=== PATIENT | male | born 1950 | race Caucasian/White ===

== ENCOUNTER 2017-02-03 11:42 | Emergency (ER) | payer OTHER ==
[~2017-02-03] VITALS: Ht 177.8 cm; Wt 113.6 kg
[2017-02-03 11:58] VITALS: BP 151/114; PULSE 93; RESP 18; O2SAT 98
--- NOTE | 2017-02-03 12:45 | DRSVH ---
PROCEDURE: X-RAY CHEST ONE VIEW, PORTABLE ([id number]) INDICATIONS: 66-year-old male with recurrent atrial fibrillation. TECHNIQUE: One view of the chest was acquired. COMPARISON: None. FINDINGS: Surgical changes and devices: None. Lungs and pleura: No pleural effusions or pneumothorax. Lungs are clear. Mediastinum: Mediastinal contours appear normal. Heart size is normal. Bones and chest wall: No suspicious bony lesions. Overlying soft tissues appear unremarkable. IMPRESSION: No acute cardiopulmonary disease. Dictated by: Lauro Ponce M.D. on 02/03/2017 at 12:44 Approved by: Lauro Ponce M.D. on 02/03/2017 at 12:44
[2017-02-03 13:42] LABS: BASOPHILS % (AUTO) 0.4 % (0-3); EOSINOPHILS % (AUTO) 3.9 % (0-5); MONOCYTES % (AUTO) 8.1 % (4-12); Mean Corpuscular Hemoglobin 29.7 pg (27.0-35.0); Mean Corpuscular Volume 86.3 fL (81-100); NEUTROPHILS % (AUTO) 50.7 % (40-74); Platelet Count 168 bil/L (150-400)
[2017-02-03 14:06] LABS: TROPONIN T < 0.010 ug/L (0.0-0.011)
[2017-02-03 14:54] VITALS: BP 134/80; PULSE 83; RESP 16; O2SAT 96
[2017-02-03] MEDS ORDERED: Propofol 10 mg/mL 20 mL Inj IVPUSH ONE (15:10)
--- NOTE | 2017-02-03 15:12 | ED.REPORT ---
HPI-General Illness Date of Service Feb 03, 2017 ED Provider: Tati Mancilla MD Pt is a 66 year old male with a history of A-fib who presents to the ED complaining of intermittent onset of A-fib for the past 2 months. He c/o associated palpitations. He denies SOB, chest pain, swelling, and water weight gain. The pt reports that his first episode of A-fib was 3 years ago and it converted by itself while he was in the hospital. The pt is moving from [place], and his child caregiver private home advised him to find a child caregiver private home in [place] to help with his current A-fib episodes. Nursing Notes Stated Complaint: AFIB Chief Complaint: Dysrhythmia/Cardiac Nursing Notes Reviewed: Yes Allergies: Coded Allergies: No Known Allergies (Unverified , 02/03/17) Scheduled Amiodarone (Amiodarone) 100 Mg Tablet 100 MG PO DAILY General Time Seen by MD: 12:23 Chief Complaint Other (A-fib) Hx Obtained From: Patient, Spouse Arrived By: Walk-in Sudden in Onset?: No Onset Occurred: More than a week ago... (2 months) Symptom Duration: Intermittent Severity: Current: No pain currently Severity: Maximum: No pain Recent Healthcare: No recent doctor visit, No recent hospitalization Similar Sx Previous: Yes Past Medical History Past Medical History Afib (first episode 3 years ago) Past Surgical History Denies Smoking History Unknown if Ever Smoker Social History Other Social History: Good social support Ambulatory Status Independent Review of Systems Full Review of Systems Respiratory: Denies: Shortness of breath Cardiovascular: Reports: Palpitations (A-fib), Denies: Chest pain Musculoskeletal: Denies: Extremity swelling Endocrine: Denies: Weight gain Complete sys rev & neg: except as marked. Physical Exam Vital Signs Vital Signs Date Time Temp Pulse Resp B/P Pulse Ox O2 Delivery O2 Flow Rate FiO2 02/03/17 14:54 83 16 134/80 96 Room Air 02/03/17 11:58 93 18 151/114 98 Room Air Initial VS: Reviewed Head / Eyes: Atraumatic, Normocephalic Respiratory: Breath sounds normal, Clear to auscultation, No respiratory distress Abdomen / GI: Soft, Non-tender Extremities: Vascular intact, Neuro intact Skin: Warm, Dry, No cyanosis Neurologic: Alert, Oriented, Nonfocal Psychiatric: Mood/affect normal, Behavior normal General/Constitutional: Awake, Alert Cardiovascular: Heart rate NL, Heart sounds NL Heart Rate / Rhythm: Positive: Irreg irregular rhythm Interpretation & Diagnostics Lab Results Interpretation Result Diagram: 02/03/17 1330 02/03/17 1330 Test 02/03/17 13:30 02/03/17 13:45 White Blood Count 4.9th/mm3 (3.8-10.1) Red Blood Count 5.48mil/mm3 (4.40-5.80) Hemoglobin 16.3g/dL (13.8-17.2) Hematocrit 47.3% (41.0-50.0) Mean Corpuscular Volume 86.3fL (81-100) Mean Corpuscular Hemoglobin 29.7pg (27.0-35.0) Mean Corpuscular Hemoglobin Concent 34.5% (32.0-37.0) Red Cell Distribution Width 15.4% (12.3-15.4) Platelet Count 168bil/L (150-400) Neutrophils (%) (Auto) 50.7% (40-74) Lymphocytes (%) (Auto) 36.7% (14-46) Monocytes (%) (Auto) 8.1% (4-12) Eosinophils (%) (Auto) 3.9% (0-5) Basophils (%) (Auto) 0.4% (0-3) Sodium Level 142mEq/L (134-144) Potassium Level 4.1mEq/L (3.5-5.2) Chloride Level 104mEq/L (97-108) Carbon Dioxide Level 22mmol/L (18-29) Blood Urea Nitrogen 9mg/dL (8-27) Creatinine 0.69mg/dL (0.76-1.27) Estimat Glomerular Filtration Rate 123mL/min (>59) Glucose Level 104mg/dL (60-99) Calcium Level 9.2mg/dL (8.5-10.1) Magnesium Level 2.0mg/dL (1.6-2.6) Total Bilirubin 0.5mg/dL (0.0-1.2) Aspartate Amino Transf (AST/SGOT) 31U/L (0-50) Alanine Aminotransferase (ALT/SGPT) 34U/L (0-44) Alkaline Phosphatase 93U/L (25-160) Troponin T < 0.010ug/L (0.0-0.011) Pro-B-Type Natriuretic Peptide 354.5pg/mL (0-210) Total Protein 7.1g/dL (6.4-8.4) Albumin 4.1g/dL (3.4-5.0) ECG Interpretation ECG Interpretation: Atrial fibrillation with a rate of 82 Incomplete RBBB and LAFB Time: 12:27 Interpreted by: ED physician ECG Interpretation: Sinus rhythm with a rate of 70 Atrial premature complex Incomplete RBBB and LAFB Time: 15:34 Interpreted by: ED physician X-Ray Chest Interpretation Chest Xray Interpretation: IMPRESSION: No acute cardiopulmonary disease. Dictated by: Lauro Ponce M.D. on 02/03/2017 at 12:44 View: Portable, 1 view Interpretation / Wet Read by: Interpret - Radiologist Procedures Electrical Cardioversion Time: 15:20 Procedure Performed by: ED physician Indication: Atrial fibrillation Consent / Setup / Site Prep: Consent from patient, Time-out performed, Placed on oxygen, Placed on pulse oximeter, Place on cardiac surgeon, Hand hygiene observed, Stand sterile technique Procedural Sedation/Analgesia: Sedation: Propofol (total of 120mg) Joules: 100 (synchronized) Procedure Successful: Yes Post-Procedure Rhythm: Normal sinus rhythm Post-Procedure / Complications: No complications, Condition improved, Tolerated procedure well, Patient stable Re-Eval/Medical Decision Med Decision/Clinical Course 66 -year-old gentleman moving to the area permanently from [place]. Problems with paroxysmal atrial fibrillation. Most recently has been on xaralto for at least a month. Also on diltiazem and 400 mg of amiodarone. His child caregiver private home in [place] has recommended that he go to the emergency room for semi-elective cardioversion and to establish care with cardiology. Recommendation was to get off the amiodarone and consider cardiac ablation. He presents in no acute distress. Records from his [place] child caregiver private home are reviewed and I did also speak with the covering partner. Mr. Bowman has been anticoagulated is rate controlled and cardioversion in the emergency department is facilitated. He converts to sinus rhythm with 100 J synchronized. Will establish care with Dr. Morelos. Spoke with Dr. Thalia Bran here to review findings and follow-up plan. She suggested continuing amiodarone however 100 mg continuing unchanged doses of diltiazem as well as xaralto Source of Hx: Old records Time of Eval: 13:29 Re-Evaluation/Progress Note: Pt rechecked. Informed pt of plan for treatment with cardioversion. Informed pt of need to find a child caregiver private home. Pt understands and agrees with plan. All questions addressed. Time of Eval: 15:20 Re-Evaluation/Progress Note: Pt rechecked. Performed cardioversion with pt's consent. Informed pt of plan for discharge. Pt understands and agrees with plan for discharge. F/U instructions and RTER warnings given. All questions addressed. Time of Eval: 16:12 Patient Status: Condition resolved Re-Evaluation/Progress Note: Reevaluated. Stable post cardioversion. Awake and alert after his sedation. Ready for discharge. Reviewed medication recommendations as well as physician follow-up recommendations. questions answered. Consultation : Referral / Consult Name: Sia Bran MD Consulted With: Cardiology Call Returned at: 15:44 Furnace Charger: Agrees with eval, Agrees with plan Note: Discussed pt's case. Counseled Regarding: Diagnosis, Lab results, Need for follow-up, When/why to return to ED Discharge & Departure Primary Impression: Atrial fibrillation Atrial fibrillation type: unspecified Qualified Code: I48.91 - Unspecified atrial fibrillation Additional Impressions: Encounter for cardioversion procedure Anticoagulant prescribed Disposition: Home Discharge Condition All VS Reviewed: Yes Condition: Stable Patient Instructions: A-fib (Atrial Fibrillation) (ED) Additional Instructions: Welcome to [facility]. I reviewed your records from your previous child caregiver private home as well as spoke with his partner. You are currently in atrial fibrillation and had been on Xaralto for the last month. You have not chemically cardioverted with your current 400 mg of amiodarone and your child caregiver private home has recommended that you be cardioverted. In the emergency department, you were given propofol sedation and a single shock to cardioverted to sinus rhythm. In consultation with our local cardiologists, I'm going to recommend that you continue your current dose of diltiazem as well as the Xaralto. In order to increase the chances of you remaining in a sinus rhythm, I am also going to recommend you continue amiodarone however at a dose of only 100 mg daily. Please stop the 400 mg dose Given your name to our cardiology clinic. If they do not contact you for an appointment with Dr. Morelos electrophysiology specialist, please call their office to set up a follow-up appointment. If you note you are back in atrial fibrillation (particularly if you are having chest pain, shortness of breath, or the rate is rapid), please return to the emergency department It was a delight to shock you today;) I hope your move goes well. Referrals: NOPCP (PCP) Sia Bran MD Scribe Attestation Portions of this note were transcribed by Steff Holguin and Miriam Carmichael. I , Dr. Mancilla personally performed the history, physical exam and medical decision-making; I reviewed and confirmed the accuracy of the information in the transcribed note. Signed by: Steff Carmichael, Saul, 02/03/17. copies to: Sia Bran MD; Quentin Morelos MD; NOPCP Tati Mancilla MD Feb 03, 2017 15:12 Steff Holguin Feb 03, 2017 15:27 Miriam Kaufman Feb 03, 2017 15:36
[2017-02-03] MEDS ORDERED: AMIO100T4 PO (16:03)
[2017-02-03 16:38] VITALS: BP 128/54; PULSE 66; RESP 14; O2SAT 97
[2017-02-04 03:09] LABS: Free Thyroxine Index 2.6 (1.2-4.9); Thyroxine (T4) 8.8 ug/dL (4.5-12.0)
== END 2017-02-03 16:30 | disposition home or self-care (01) ==
LOC: SED 11:42
DX: I48.91 Unspecified atrial fibrillation (principal)
CPT/HCPCS: 36415; 71010; 80053; 83735; 83880; 84436; 84443; 84479; 84484; 85025; 92960; 93005; 94799; 99285; J2704